=== PATIENT | female | born 2000 ===

== ENCOUNTER 2018-09-17 18:07 | Emergency (ER) | payer SELFPAY ==
[2018-09-17 19:06] VITALS: RESP 18; TEMP 99.1; BMI 22.4
--- NOTE | 2018-09-17 19:33 | ED PDOC ---
Arrival/HPI - General Chief Complaint: Abdominal Pain Time Seen by Provider: 09/17/18 19:17 Historian: Patient, Other (mother in law) - History of Present Illness Narrative History of Present Illness (Text): 09/17/18 19:33 17 year old female, with no significant past medical history, presents to the emergency department complaining of abdominal pain, nausea, and vomiting for the past 4 days. Patient notes her LNMP was in July, she is sexually active, and she stopped taking her control 6 months ago. She notes secondary pain when urinating and she has been experiencing dark vaginal discharge. Patient denies fevers, chills, headache, dizziness, chest pain, shortness of breath, dyspnea on exertion, cough, diarrhea, back pain, neck pain, or any other complaint. Time/Duration: < week Symptom Onset: Gradual Symptom Course: Unchanged Activities at Onset: Light Context: Home Past Medical History - Provider Review Nursing Documentation Reviewed: Yes - Infectious Disease Hx of Infectious Diseases: None - Psychiatric Hx Substance Use: No - Surgical History Other/Comment: lipoma removal - Anesthesia Hx Anesthesia: No Family/Social History - Physician Review Nursing Documentation Reviewed: Yes Family/Social History: No Known Family HX Smoking Status: Never Smoked Hx Alcohol Use: No Hx Substance Use: No Allergies/Home Meds Allergies/Adverse Reactions: Allergies No Known Allergies Allergy (Verified 09/17/18 19:06) Home Medications: Home Meds Medication Instructions Recorded Confirmed No Known Home Med 09/17/18 09/17/18 Review of Systems - Physician Review All systems were reviewed & negative as marked: Yes - Review of Systems Constitutional: absent: Fevers Respiratory: absent: SOB, Cough Cardiovascular: absent: Chest Pain Gastrointestinal: Abdominal Pain, Nausea, Vomiting. absent: Diarrhea Genitourinary Female: Dysuria, Vaginal Discharge (dark discharge) Musculoskeletal: absent: Back Pain, Neck Pain Neurological: absent: Headache, Dizziness Physical Exam Vital Signs Reviewed: Yes Vital Signs Temp Pulse Resp BP Pulse Ox 09/17/18 19:05 99.1 F 99 H 18 99/65 L 97 Temperature: Afebrile Blood Pressure: Hypotensive Pulse: Tachycardic Respiratory Rate: Normal Appearance: Positive for: Well-Appearing, Non-Toxic, Comfortable Pain Distress: None Mental Status: Positive for: Alert and Oriented X 3 - Systems Exam Head: Present: Atraumatic, Normocephalic Pupils: Present: PERRL Extroacular Muscles: Present: EOMI Conjunctiva: Present: Normal Mouth: Present: Moist Mucous Membranes Neck: Present: Normal Range of Motion Respiratory/Chest: Present: Clear to Auscultation, Good Air Exchange. No: Respiratory Distress, Accessory Muscle Use Cardiovascular: Present: Regular Rate and Rhythm, Normal S1, S2. No: Murmurs Abdomen: No: Tenderness, Distention, Peritoneal Signs Genitourinary/Pelvic Exam: Present: Normal External Genitalia, Vaginal Discharge (thin white vaginal secretions ), Adenexal Tenderness (Left adnexal tenderness). No: Vaginal Bleeding, Vaginal Lesions, Adenexal Mass, Cervical Motion Tendernes, Odor Back: Present: Normal Inspection Upper Extremity: Present: Normal Inspection. No: Cyanosis, Edema Lower Extremity: Present: Normal Inspection. No: Edema Neurological: Present: GCS=15, CN II-XII Intact, Speech Normal Skin: Present: Warm, Dry, Normal Color. No: Rashes Psychiatric: Present: Alert, Oriented x 3, Normal Insight, Normal Concentration Medical Decision Making ED Course and Treatment: 09/17/18 19:39 Impression: 17 year old female who presents to the emergency department complaining of abdominal pain, nausea, and vomiting. Differential Diagnosis included but are not limited to: --Ectopic --UTI --Ovarian torsion Plan: -- POC test --Urinalysis --Labs --Endovaginal ultrasound --Reassess and disposition Prior Visits: Notes and results from previous visits were reviewed. Progress Notes: 09/17/18 21:49 Labs reviewed with no evidence of bacteria in the urine. B-HCG 83,000. Pending US 09/17/18 21:[address] Archibald who will resume the patient's care. - Lab Interpretations Lab Results: 09/17/18 20:34 09/17/18 20:34 Lab Results 09/17/18 21:35: Blood Type Pending, Antibody Screen Pending, BBK History Checked No verified bt 09/17/18 20:34: Beta HCG, Quant 48690.00 H 09/17/18 20:34: Sodium 135, Potassium 3.4 L, Chloride 100, Carbon Dioxide 23, Anion Gap 16, BUN 10, Creatinine 0.6 L, Est GFR ( Amer) > 60, Est GFR (Non-Af Amer) > 60, Random Glucose 93, Calcium 10.0, Magnesium 1.6 L, Total Bilirubin 0.3, AST 28, ALT 26, Alkaline Phosphatase 82, Total Protein 8.4 H, Albumin 4.8, Globulin 3.6, Albumin/Globulin Ratio 1.3 09/17/18 20:34: WBC 10.1, RBC 4.51, Hgb 12.9, Hct 37.5, MCV 83.1, MCH 28.6, MCHC 34.4, RDW 12.8, Plt Count 198, MPV 10.5, Gran % 76.8 H, Lymph % (Auto) 18.3 L, [place] % (Auto) 4.5, Eos % (Auto) 0.2 L, Baso % (Auto) 0.2, Gran # 7.74 H, Lymph # (Auto) 1.8, [place] # (Auto) 0.5, Eos # (Auto) 0.0, Baso # (Auto) 0.02 09/17/18 20:23: Urine Color Light yellow, Urine Appearance Clear, Urine pH 6.0, Ur Specific [place] 1.010, Urine Protein Negative, Urine Glucose (UA) Negative, Urine Ketones 15 H, Urine Blood Negative, Urine Nitrate Negative, Urine Bilirubin Negative, Urine Urobilinogen 0.2, Ur Leukocyte Esterase Negative I have reviewed the lab results: Yes - Scribe Statement The provider has reviewed the documentation as recorded by the Kwan Vallecillo Provider Scribe Attestation: All medical record entries made by the Scribe were at my direction and personally dictated by me. I have reviewed the chart and agree that the record accurately reflects my personal performance of the history, physical exam, medical decision making, and the department course for this patient. I have also personally directed, reviewed, and agree with the discharge instructions and disposition. Disposition/Present on Arrival - Present on Arrival History of DVT/PE: No History of Uncontrolled Diabetes: No Urinary Catheter: No History of Decub. Ulcer: No History Surgical Site Infection Following: None - Disposition Referrals: FAMILY PROVIDER,NO [Primary Care Provider] - Follow up with primary Forms: [employer] ([place])
[2018-09-17 20:40] LABS: BASO # 0.02 K/mm3 (0.0-2.0); BASO % 0.2 % (0.0-3.0); EOS % 0.2 % (1.5-5.0); GRAN # 7.74 (1.4-6.5); GRAN % 76.8 % (50.0-68.0); HEMOGLOBIN 12.9 g/dL (12.0-16.0); LYMPH # 1.8 (1.2-3.4); LYMPH % 18.3 % (22.0-35.0); MEAN CELL VOLUME 83.1 fl (80.0-105.0); MEAN CORPUSCULAR HEMOGLOBIN 28.6 pg (25.0-35.0); MEAN CORPUSCULAR HGB CONC 34.4 g/dl (31.0-37.0); MEAN PLATELET VOLUME 10.5 fl (7.0-11.0); MONO # 0.5 (0.1-0.6); MONO % 4.5 % (1.0-6.0); RBC 4.51 10^6/uL (3.5-6.1); RED CELL DISTRIBUTION WIDTH 12.8 % (11.5-14.5); WHITE BLOOD COUNT 10.1 10^3/uL (4.5-11.0)
[2018-09-17 20:42] LABS: URINE APPEARANCE CLEAR (CLEAR); URINE BILIRUBIN NEGATIVE (NEGATIVE); URINE BLOOD NEGATIVE (NEGATIVE); URINE COLOR LIGHT YELLOW (YELLOW); URINE GLUCOSE (UA) NEGATIVE (NEGATIVE); URINE LEUKOCYTE ESTERASE NEGATIVE Leu/uL (NEGATIVE); URINE PROTEIN NEGATIVE mg/dL (<30 mg/dL); URINE UROBILINOGEN 0.2 E.U./dL (<1 E.U./dL)
[2018-09-17 20:48] LABS: ALB/GLOB RATIO 1.3 (1.1-1.8); ALBUMIN 4.8 g/dL (3.0-4.8); ALT/SGPT 26 U/L (7-56); AST/SGOT 28 U/L (14-36); BLOOD UREA NITROGEN 10 mg/dL (7-21); GFR NON-AFRICAN AMERICAN > 60
--- NOTE | 2018-09-18 00:34 | ED PDOC ---
Physical Exam Vital Signs Temp Pulse Resp BP Pulse Ox 09/17/18 19:05 99.1 F 99 H 18 99/65 L 97 Medical Decision Making ED Course and Treatment: 09/18/18 22:00 Patient endorsed to me by Dr Genao. Patient history approximately 6 weeks , with abdominal cramps and vomiting. Patient case pending US results. Ultrasound Impression Single live intrauterine gestation 6 weeks 3 days. Right paraovarian cysts. Implantation bleed. 09/18/18 00:35 Pt. remains asymptomatic stating she feels fine.Full follow up care instructions given. - Lab Interpretations Lab Results: Total Bilirubin 0.3 mg/dL (0.2-1.3) 09/17/18 20:34 AST 28 U/L (14-36) 09/17/18 20:34 ALT 26 U/L (7-56) 09/17/18 20:34 Alkaline Phosphatase 82 U/L (38-126) 09/17/18 20:34 Total Protein 8.4 g/dL (5.8-8.3) H 09/17/18 20:34 Albumin 4.8 g/dL (3.0-4.8) 09/17/18 20:34 Globulin 3.6 gm/dL 09/17/18 20:34 Albumin/Globulin Ratio 1.3 (1.1-1.8) 09/17/18 20:34 Urine Color Light yellow (YELLOW) 09/17/18 20:23 Urine Appearance Clear (CLEAR) 09/17/18 20:23 Urine pH 6.0 (4.7-8.0) 09/17/18 20:23 Ur Specific [place] 1.010 (1.005-1.035) 09/17/18 20:23 Urine Protein Negative mg/dL (<30 mg/dL) 09/17/18 20:23 Urine Glucose (UA) Negative mg/dL (NEGATIVE) 09/17/18 20:23 Urine Ketones 15 mg/dL (NEGATIVE) H 09/17/18 20:23 Urine Blood Negative (NEGATIVE) 09/17/18 20:23 Urine Nitrate Negative (NEGATIVE) 09/17/18 20:23 Urine Bilirubin Negative (NEGATIVE) 09/17/18 20:23 Urine Urobilinogen 0.2 E.U./dL (<1 E.U./dL) 09/17/18 20:23 Ur Leukocyte Esterase Negative Boris/uL (NEGATIVE) 09/17/18 20:23 Beta HCG, Quant 32275.00 mIU/mL (0-6.15) H 09/17/18 20:34 - RAD Interpretation Radiology Orders: 09/17/18 20:24 OB TRANSVAGINAL [US] Stat Disposition/Present on Arrival - Present on Arrival Any Indicators Present on Arrival: No History of DVT/PE: No History of Uncontrolled Diabetes: No Urinary Catheter: No History of Decub. Ulcer: No History Surgical Site Infection Following: None - Disposition Have Diagnosis and Disposition been Completed?: Yes Diagnosis: Threatened , Vomiting during Disposition: HOME/ ROUTINE Disposition Time: 00:35 Patient Plan: Discharge Condition: GOOD Discharge Instructions (ExitCare): Threatened Miscarriage (DC), Nausea and Vomiting of (DC) Additional Instructions: Rest/No strenuous physical activity/Take meds as prescribed for vomiting/follow up with the ob/collect on delivery clerk this week Prescriptions: Doxylamine/Pyridoxine HCl (B6) [Xiao Taveras 10-10 mg Tablet] 1 each PO BID PRN #12 tablet. PRN Reason: Nausea/Vomiting Referrals: FAMILY PROVIDER,NO [Primary Care Provider] - Follow up with primary Joni Mendoza MD [Staff Provider] - Follow up with primary Forms: [employer] ([place])
[2018-09-18 02:00] VITALS: BP 100/64; PULSE 90; O2SAT 99
--- NOTE | 2018-09-18 12:06 | US ---
Date of service: 09/17/2018 Indication: u preg positive Comparison: None available Technique: Transvaginal pelvic ultrasound Findings: The uterus measures approximately 11.9 x 4.2 x 6.0 cm. Anteverted. Cervix length measures approximately 2.3 cm. There is a single intrauterine fetus present. 3 mm yolk sac. The gestational sac measures 1.8 cm and is compatible with a gestational age of 6 weeks 2 days. The crown-rump length measures 0.7 cm and is compatible with a gestational age of 6 weeks 4 days. There is heart motion which measured 141 BPM. 1.3 x 0.9 x 0.5 cm subchorionic hemorrhage. The right ovary measures 2.0 x 2.1 x 2.6 cm. Right para ovarian cyst measuring approximately 1.5 cm and 1.3 cm. The left ovary measures 2.7 x 1.7 x 2.7 cm. Blood flow was demonstrated to both ovaries. Impression: Live single intrauterine with estimated gestational age 6 weeks 2 days by gestational sac calculation and 6 weeks 4 days by crown-rump length calculation. heart rate 141 bpm. 1.3 x 0.9 x 0.5 cm subchorionic hemorrhage. Advise an anomaly screen at 16-18 weeks gestational age Preliminary impression was provided by [employer].
== END 2018-09-18 02:00 | disposition home or self-care (01) ==
LOC: ED 18:07
DX: O20.0 Threatened abortion (principal); O21.9 Vomiting of pregnancy, unspecified; Z3A.01 Less than 8 weeks gestation of pregnancy